=== PATIENT | female | born 1985 ===

== ENCOUNTER 2017-02-12 14:41 | Inpatient (IN) ==
[2017-02-12 15:33] LABS: Basophils % 0.4 % (0.0-0.8); Eosinophils # 0.1 10*3/uL (0.0-0.87); Eosinophils % 0.8 % (0.00-10.9); Hemoglobin 11.6 GM/DL (12.0-16.0); Immature Granulocytes % 0.4 %; Immature Granulocytes Absolute 0.04 #; Lymphocytes # 2.9 10*3/uL (1.4-4.0); Lymphocytes % 25.4 % (21.3-54.2); Mean Corpuscular HGB Conc 34.1 GM/DL (32-36); Mean Corpuscular Hemoglobin 29 PG (27-34); Mean Corpuscular Volume 83.5 FL (87-102); Mean Platelet Volume 10.3 FL (9.6-12.0); Monocytes # 0.6 10*3/uL (0.11-0.8); Monocytes % 5.3 % (1.7-12.7); Neutrophils # 7.7 10*3/uL (1.4-7.4); Neutrophils % 67.7 % (38.7-73.9); Platelet Count 276 T/CUMM (130-400); Red Blood Count 4.07 MC/CUMM (3.8-5.5); Red Cell Distribution Width 12.8 % (9.3-17.3); White Blood Count 11.3 T/CUMM (4-12)
[2017-02-12 15:39] LABS: Apearance,Urine Slightly Hazy (Clear); Bacteria,Urine Occasional /HPF (Few); Bilirubin,Urine Negative (Negative); Blood, Urine Negative (Negative); Glucose,Urine (UA) 150 mg/dL (Negative); Ketones,Urine Negative (Negative); Nitrite,Urine Negative (Negative); Protein,Urine Negative; RBC,Urine 1 /HPF (0-4); Squamous Epithelial Cell,Urine Occasional /HPF (0-10); Urine Color Straw (Yellow); Urine Specific Gravity 1.005 (1.001-1.035); Urine Urobilinogen < 2.0 EU/DL (0.2-1.0); WBC,Urine 2 /HPF (0-6)
[2017-02-12] MEDS: LACTATED RINGERS 1,000 ML IV SCH ×2 (15:52→21:07)
[2017-02-12 16:03] LABS: Alanine Aminotransferase 12 U/L (13-56); Albumin 2.3 G/DL (3.4-5.0); Alkaline Phosphatase 69 U/L (45-117); Aspartate Amino Transferase 12 U/L (0-37); Bilirubin,Total < 0.39 MG/DL (0.2-1.0); Blood Urea Nitrogen 9 MG/DL (7-18); Calcium 8.2 MG/DL (8.5-10.1); Glucose 146 MG/DL (74-106); Osmolality,Calculated 280.4 MOS/KG (273-304); Potassium 3.8 MMOL/L (3.5-5.1); Sodium 140 MMOL/L (136-145); Total Protein 5.8 G/DL (6.4-8.3); Uric Acid 4.8 MG/DL (2.6-6.0)
[2017-02-12] MEDS: hydrALAZINE 20 MG/1 ML VIAL IV PRN ×2 (16:44→16:55)
[2017-02-12] MEDS ORDERED: GLUCAGON 1 MG VIAL IM PRN (17:26)
[2017-02-12] MEDS ORDERED: DEXTROSE 50% 25 GM/50 ML VIAL IV PRN (17:26)
[2017-02-12] MEDS: ACETAMINOPHEN 500 MG TABLET PO PRN (18:45)
[2017-02-12] MEDS ORDERED: LABETALOL 100 MG TABLET PO ONE (19:00)
[2017-02-12] MEDS ORDERED: MEPERIDINE 50 MG/1 ML VIAL IV ONE (20:50)
[2017-02-12] MEDS ORDERED: ONDANSETRON 4 MG/2 ML VIAL IV ONE (20:50)
[2017-02-12] MEDS ORDERED: LABETALOL 200 MG TABLET ONE (20:57)
[2017-02-12] MEDS ORDERED: LABETALOL 100 MG TABLET PO SCH ×2 (21:00→21:12)
[2017-02-12] MEDS: LABETALOL 100 MG TABLET PO SCH (21:01)
[2017-02-13] MEDS: LACTATED RINGERS 1,000 ML IV SCH ×3 (08:23→19:17)
[2017-02-13] MEDS: LABETALOL 100 MG TABLET PO SCH ×2 (08:47→21:05)
[2017-02-13] MEDS ORDERED: LABETALOL 100 MG TABLET PO SCH (09:00)
--- NOTE | 2017-02-13 09:30 | Ultrasound Report ---
US OB biophys profile Indication: Hypertension, diabetes. Comparison: None. Technique: Multiple longitudinal and transverse sonographic images of the maternal abdomen/pelvis were obtained for evaluation of biophysical profile . Findings: Biophysical variables and scores: breathing movements: 2 out of 2 Gross body movements: 2 out of 2 tone: 2 out of 2 Qualitative amniotic fluid volume: 2 out of 2 Total score: 8 out of 8 position Vertex. Placenta location anterior. heart rate 131 bpm. JW 12.5 cm. Cervical length 4.9 cm. IMPRESSION: 8 out of 8 total biophysical profile score. PROCEDURE INTERPRETED AT [facility] DEPARTMENT OF RADIOLOGY Final Report Signed by: Dr Pablito Corrales
[2017-02-13] MEDS ORDERED: ACETAMINOPHEN/CODEINE 300-30 MG TABLET PO ONE (09:50)
[2017-02-13] MEDS: ACETAMINOPHEN 500 MG TABLET PO PRN (16:55)
--- NOTE | 2017-02-13 17:54 | OB/GYN History & Physical ---
History of Present Illness Chief complaint: Elevation of her blood pressure. History of present illness: Ms. Orantes is a 31 year old female 1 para 0 who presents with elevation of her blood pressure. The patient was sent over to labor and delivery for further evaluation. Blood pressures have been volatile depending upon the size of the cough 130s over 80s- 180s over 90s. She did receive IV Apresoline, she did also receive a labetalol 200 twice daily, and she has had a 24-hour urine collection initiated. Patient states that the fetus is very active, no right upper quadrant pain, occasional headaches. Will observe her very closely and will then assess her further. 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 Vitals: Vital Signs Temp Pulse Resp BP 02/13/17 12:00 97.7 F 61 19 138/84 02/13/17 08:00 98.4 F 68 20 146/82 02/13/17 04:00 97.8 F 77 18 112/59 02/13/17 00:00 97.6 F 62 20 110/53 02/12/17 20:00 97.7 F 96 H 20 138/69 General appearance: mild distress - Antepartum / Post Antepartum Exam Cervix - Dilatation: Thick and closed - Head Head exam: Present: normal inspection - Eye Eye exam: Present: EOMI Pupils: Present: REYMUNDO - ENT ENT exam: Present: normal exam - Neck Neck exam: Present: normal inspection - Respiratory Respiratory exam: Present: clear to auscultation bilaterally - Breast Breasts: as per HPI Menstruation: as per HPI - Cardiovascular Cardiovascular exam: Present: regular rate and rhythm - GI/Abdominal GI/Abdominal exam: Present: normal bowel sounds - Extremities Exam Extremities exam: Present: normal inspection - Back Exam Back exam: Present: normal inspection - Neurological Exam Neurological exam: Present: alert, oriented X3 - Psychiatric Psychiatric exam: Present: normal affect - Skin Skin exam: Present: normal color (2+ edema) Assessment and Plan (1) PIH ( induced hypertension) Status: Acute Assessment and plan: Prematurity, -induced hypertension, will assess the PIH labs, 24-hour urine protein. We will also administer Celestone. Patient will continue with some the labetalol 200 twice daily and will assess whether or not this patient will be delivered based upon her remaining blood pressures. Current Visit: Yes Results - Labs CBC & BMP: 02/12/17 15:26 02/12/17 15:26
[2017-02-13] MEDS ORDERED: BETAMETH SODIUM PHOS/ACETATE 30 MG/5 ML VIAL IM ONE (17:55)
[2017-02-13 18:49] LABS: Collection Time,Urine 24 HOURS; Total Protein 24 Hr Ur Result 333 MG/24HR (0-149.1); Total Volume,Urine 1450 ML (400-2000)
[2017-02-13 20:11] LABS: Creatinine 24 Hr Urine Result 1.58 G/24HR (0.60-1.80); Creatinine Clearance Urine 117.18 ML/MIN (70-115)
[2017-02-13] MEDS ORDERED: MEPERIDINE 50 MG/1 ML VIAL IM ONE (21:41)
[2017-02-13] MEDS ORDERED: PROMETHAZINE 25 MG/1 ML VIAL IM ONE (21:41)
[2017-02-14] MEDS ORDERED: BETAMETH SODIUM PHOS/ACETATE 30 MG/5 ML VIAL IM ONE (07:00)
[2017-02-14] MEDS: LABETALOL 100 MG TABLET PO SCH (10:12)
[2017-02-14 15:46] VITALS: BP 171/88
== END 2017-02-14 13:30 | disposition home or self-care (01) | DRG 781 ==
LOC: N.LD 14:41 → N.LDOUT 14:41 → N.LD 14:48
PROVIDERS: ADMIT Obstetrics & Gynecology; ATTEND Obstetrics & Gynecology

== ENCOUNTER 2017-03-02 17:15 | Inpatient (IN) ==
[2017-03-02 18:16] LABS: INR 0.9; PT Patient Result 9.7 SECS; Partial Thromboplastin Time 28.9 SECS (0-40)
[2017-03-02] MEDS ORDERED: ONDANSETRON 4 MG/2 ML VIAL IV PRN (18:24)
[2017-03-02] MEDS ORDERED: MEPERIDINE 50 MG/1 ML VIAL IV PRN (18:24)
[2017-03-02] MEDS ORDERED: hydrALAZINE 20 MG/1 ML VIAL IV ONE (18:28)
[2017-03-02] MEDS ORDERED: MAGNESIUM SULF RIDER 100 ML IV ONE (18:28)
[2017-03-02] MEDS ORDERED: LACTATED RINGERS 1,000 ML IV SCH (18:30)
[2017-03-02 18:54] LABS: Alanine Aminotransferase 17 U/L (13-56); Albumin 2.5 G/DL (3.4-5.0); Alkaline Phosphatase 79 U/L (45-117); Aspartate Amino Transferase 16 U/L (0-37); Bilirubin,Total < 0.39 MG/DL (0.2-1.0); Blood Urea Nitrogen 13 MG/DL (7-18); Calcium 8.3 MG/DL (8.5-10.1); Glucose 90 MG/DL (74-106); Osmolality,Calculated 282.1 MOS/KG (273-304); Potassium 3.8 MMOL/L (3.5-5.1); Sodium 142 MMOL/L (136-145); Uric Acid 6.2 MG/DL (2.6-6.0)
[2017-03-02] MEDS: MAGNESIUM SULF DRIP 40 GM/1,000 ML ML IV SCH (19:23)
--- NOTE | 2017-03-02 19:35 | OB/GYN History & Physical ---
History of Present Illness Chief complaint: Elevated BP History of present illness: Ms. Orantes is a 31 year old female at 36 0/7 weeks who presented to the [facility] this evening because of lower abdominal pain. Her BF began to fall last night and she caught him. It was noted while she was there that her BP was elevated at 170/100. Pt reported that Dr. Shaw started her on BP medication (Labetalol 200 bid) 2 weeks ago. Received 10mg of Labetalol there. Upon arrival here. BP still elevated and patient now has a MEIER. Advised her that the best course of action is to proceed with IOL. Will attempt cytotec. If unsucessful, will proceed to section. H/o Type 2 DM. Was on Metformin. Stopped early in . 2 weeks ago when her BP became elevated, her sugars were again elevated and she was started on insulin. Morbidly obese. No other medical history or surgical history. Home Medications Medication Instructions Recorded Confirmed Type Folic Acid 0.8 mg PO DAILY 02/12/17 03/02/17 History Vit No.130/Iron/Folic 1 each PO DAILY 02/12/17 03/02/17 History [ Vitamins] Insulin NPH Human Isophane 16 units SUBCUT BID W/MEALS 02/21/17 03/02/17 History [Novolin N] Labetalol Tab [Trandate Tab] 1 tablet PO BID 02/21/17 03/02/17 History Insulin Regular, Human [NovoLIN R] 5 units SUBCUT BID W/MEALS 02/27/17 03/02/17 History Allergies Allergy/AdvReac Type Severity Reaction Status Date / Time No Known Allergies Allergy Verified 03/02/17 17:37 Medical,Surgical,& Family Hx - Social History 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 No contractions) Assessment and Plan (1) 36 weeks gestation of Status: Acute Current Visit: Yes (2) Class 1 obesity due to excess calories in adult Status: Acute Current Visit: Yes (3) PIH ( induced hypertension) Status: Acute Assessment and plan: Plan IOL with cytotec Procardia and Magnesium started. Anticipate delivery Current Visit: No Results - Labs CBC & BMP: 03/02/17 17:59
[2017-03-02] MEDS ORDERED: GLUCAGON 1 MG VIAL IM PRN (19:38)
[2017-03-02] MEDS ORDERED: DEXTROSE 50% 25 GM/50 ML VIAL IV PRN (19:38)
[2017-03-02] MEDS ORDERED: ACETAMINOPHEN 500 MG TABLET PO PRN (21:54)
[2017-03-02 22:03] LABS: Apearance,Urine CLEAR (Clear); Bacteria,Urine Occasional /HPF (Few); Bilirubin,Urine Negative (Negative); Blood, Urine Negative (Negative); Glucose,Urine (UA) Negative (Negative); Ketones,Urine Negative (Negative); Mucus,Urine Occasional /LPF (Occasional); Nitrite,Urine Negative (Negative); Protein,Urine 100 MG/DL; RBC,Urine <1 /HPF (0-4); Squamous Epithelial Cell,Urine Occasional /HPF (0-10); Transitional Epi Cells,Urine Occasional /HPF (<1); Urine Color Yellow (Yellow); Urine Specific Gravity 1.019 (1.001-1.035); Urine Urobilinogen < 2.0 EU/DL (0.2-1.0); WBC,Urine 1 /HPF (0-6)
[2017-03-02] MEDS ORDERED: hydrALAZINE 20 MG/1 ML VIAL IV PRN (23:36)
[2017-03-02] MEDS ORDERED: CITRIC ACID/SODIUM CITRATE 30 ML UDCUP PO ONE (23:54)
[2017-03-02] MEDS ORDERED: FAMOTIDINE 20 MG/2 ML VIAL IV ONE (23:54)
[2017-03-02] MEDS ORDERED: cefOXitin 3,000 MG in SODIUM CHLORIDE 0.9% 100 ML IV ONE (23:58)
[2017-03-03] MEDS ORDERED: AMPICILLIN INJ 2,000 MG in SODIUM CHLORIDE 0.9% 100 ML IV ONE
[2017-03-03] MEDS ORDERED: OXYTOCIN/LR 20 UNIT/1,000 ML BAG IV ONE ×2 (00:08→01:56)
--- NOTE | 2017-03-03 00:24 | OB/GYN Progress Note ---
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 BP remain elevated. 2nd dose of cytotec placed without significant cervical change. Still has MEIER in spite of iv Demerol and po tylenol. Explained to the patient that in light of the findings, C section would be best given her remoteness from delivery. R/B/A to section reviewed with the patient. Pt verbalized understanding of said information and is willing to proceed. 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 Contractions q 3-5 minutes) Results - Labs CBC & BMP: 03/02/17 17:59
[2017-03-03] MEDS ORDERED: PHENYLEPHRINE 1 MG/10 ML SYRINGE IV ONE (00:34)
[2017-03-03] MEDS ORDERED: ONDANSETRON 4 MG/2 ML VIAL ONE (00:34)
[2017-03-03 00:39] LABS: Barbiturates Screen,Urine Negative (Negative); Benzodiazepines Screen,Urine Negative (Negative); Cannabinoid Screen,Urine Negative (Negative); Opiate Screen,Urine Positive (Negative); Phencyclidine Screen,Urine Negative (Negative)
[2017-03-03 01:30] LABS: Cord Arterial Blood HCO3 18.3 MMOL/L
[2017-03-03 01:31] LABS: Cord Venous Blood HCO3 24.3 MMOL/L; Cord Venous Blood PCO2 53.6 MMHG; Cord Venous Blood PO2 15.7 MMHG
[2017-03-03] MEDS ORDERED: ONDANSETRON 4 MG/2 ML VIAL IV PRN (01:56)
[2017-03-03] MEDS ORDERED: RHO(D) IMMUNE GLOBULIN 300 MCG SYRINGE IM ONE (01:56)
--- NOTE | 2017-03-03 02:08 | Anesthesia Post-Op ---
Anesthesia Post OP - Post Ansesthetic Evaluation Patient seen in post op: Yes Resp: within normal limits CV: within normal limits Mental: within normal limits Temp: within normal limits [id number]: within normal limits Nausea and Vomiting: within normal limits Pain: within normal limits
[2017-03-03] MEDS ORDERED: MORPHINE 10 MG/10 ML VIAL ONE (02:10)
[2017-03-03] MEDS ORDERED: fentaNYL 100 MCG/2 ML VIAL ONE (02:11)
[2017-03-03] MEDS ORDERED: ePHEDrine 50 MG/ML AMP ONE (02:11)
--- NOTE | 2017-03-03 02:13 | Operative Note ---
Date of procedure: 03/03/17 Pre-op diagnosis: 1. PIH 2. 36 weeks 3. Obesity Post-op diagnosis: same Procedure: PRIMARY Pt was taken to the OR and transferred to the OR table. Regional anesthesia was placed and found to be adequate. Prepped and draped in sterile fashion with vera in her bladder. Pt noted to have what appears to be yeast rash across her entire lower abdomen beneath paniculus meeting top of mons. Width 3 cm. Not red. Incision thru superior portion. Incision made 2 FBs above symphysis pubis. Carried down to the underlying fascia. Fascia scored in the midline and the incision extended to either side with Kapoor scissors. Aman clamps placed superiorly and rectus muscle dissected away. Similar procedure inferiorly. Midline entered sharply with Metzenbaum scissors. Incision extended bluntly. Renato retractor placed. Incision made above bladder reflection. Technically difficult secondary to her paniculus. Incsion extended bluntly and sharply. Clear fluid. Attempted to deliver vertex. Incision extended on the uterus and Kiwi placed. Popped off. Renato removed for space and rectus muscle on the left cut. delivered. Cord clamped and cut, infant handed off to the awaiting NICU team. Cord bloods and gases obtained. Male infant. 7lbs 4 oz. APGARS 3/9. Normal uterus tubes and ovaries. Placenta delivered. Uterus cleared of clots and debris. Uterus closed in 2 layers with vicryl suture. Pelvis copiously irrigated with warm saline. Fascia closed with two vicryl sutures from either side to midline. Skin closed with marlyn. Sponge, lap and needle counts correct x 2. Pt taken to recovery in stable condition. Anesthesia: regional Surgeon / Physician: Darling Hurst Psychiatric Assistant: Jovanna Selby Estimated blood loss: other (1000 cc) Specimens: other (Placenta) Condition: stable Disposition: other (L&D) Results - Labs CBC & BMP: 03/02/17 17:59 Discharge Plan - Discharge Medications No Action Insulin Regular, Human [NovoLIN R] 5 units SUBCUT BID W/MEALS Vit No.130/Iron/Folic [ Vitamins] 1 each PO DAILY Folic Acid 0.8 mg PO DAILY Labetalol Tab [Trandate Tab] 1 tablet PO BID Insulin NPH Human Isophane [Novolin N] 16 units SUBCUT BID W/MEALS - Follow Up or Referral - Forms/Instructions
[2017-03-03] MEDS: IBUPROFEN 800 MG TABLET PO PRN ×2 (03:09→15:26)
[2017-03-03] MEDS ORDERED: AMPICILLIN INJ 1,000 MG in SODIUM CHLORIDE 0.9% 100 ML IV SCH (04:00)
[2017-03-03] MEDS ORDERED: hydrALAZINE 20 MG/1 ML VIAL IV ONE (06:36)
[2017-03-03] MEDS: LACTATED RINGERS 1,000 ML IV SCH ×2 (07:30→23:41)
[2017-03-03 07:51] LABS: Basophils % 0.1 % (0.0-0.8); Eosinophils % 0.1 % (0.00-10.9); Hematocrit 29.5 VOL% (35.7-47.0); Hemoglobin 9.9 GM/DL (12.0-16.0); Immature Granulocytes % 0.5 %; Immature Granulocytes Absolute 0.08 #; Lymphocytes # 2.1 10*3/uL (1.4-4.0); Lymphocytes % 14.2 % (21.3-54.2); Mean Corpuscular HGB Conc 33.6 GM/DL (32-36); Mean Corpuscular Hemoglobin 29 PG (27-34); Mean Platelet Volume 10.4 FL (9.6-12.0); Monocytes # 0.7 10*3/uL (0.11-0.8); Monocytes % 4.6 % (1.7-12.7); Neutrophils % 80.5 % (38.7-73.9); Platelet Count 230 T/CUMM (130-400); Red Blood Count 3.47 MC/CUMM (3.8-5.5); Red Cell Distribution Width 14.2 % (9.3-17.3); White Blood Count 14.9 T/CUMM (4-12)
[2017-03-03] MEDS ORDERED: FLUCONAZOLE 100 MG TABLET PO ONE (08:00)
[2017-03-03] MEDS: DOCUSATE SODIUM 100 MG CAPSULE PO SCH ×2 (10:12→20:44)
[2017-03-03] MEDS: MULTIVITAMIN (PRENATAL) TABLET PO SCH (10:15)
[2017-03-03] MEDS ORDERED: DEXTROSE 50% 25 GM/50 ML VIAL IV PRN (11:53)
[2017-03-03] MEDS ORDERED: GLUCAGON 1 MG VIAL IM PRN (11:53)
[2017-03-03] MEDS: MAGNESIUM SULF DRIP 40 GM/1,000 ML ML IV SCH (17:10)
[2017-03-03] MEDS: SIMETHICONE CHEW 80 MG TABLET PO PRN (18:15)
[2017-03-03] MEDS: metFORMIN 500 MG TABLET PO SCH (19:20)
[2017-03-03] MEDS: INSULIN REGULAR 100 UNIT/ML SUBCUT SCH (21:06)
[2017-03-04 05:02] LABS: Basophils % 0.2 % (0.0-0.8); Eosinophils # 0.1 10*3/uL (0.0-0.87); Eosinophils % 0.7 % (0.00-10.9); Hematocrit 26.4 VOL% (35.7-47.0); Hemoglobin 8.9 GM/DL (12.0-16.0); Immature Granulocytes % 0.5 %; Immature Granulocytes Absolute 0.06 #; Lymphocytes # 2.7 10*3/uL (1.4-4.0); Lymphocytes % 21.1 % (21.3-54.2); Mean Corpuscular HGB Conc 33.7 GM/DL (32-36); Mean Corpuscular Hemoglobin 29 PG (27-34); Mean Corpuscular Volume 85.7 FL (87-102); Monocytes # 0.6 10*3/uL (0.11-0.8); Monocytes % 4.9 % (1.7-12.7); Neutrophils # 9.2 10*3/uL (1.4-7.4); Neutrophils % 72.6 % (38.7-73.9); Platelet Count 240 T/CUMM (130-400); Red Blood Count 3.08 MC/CUMM (3.8-5.5); Red Cell Distribution Width 14.7 % (9.3-17.3); White Blood Count 12.7 T/CUMM (4-12)
[2017-03-04] MEDS: IBUPROFEN 800 MG TABLET PO PRN ×3 (05:07→22:20)
--- NOTE | 2017-03-04 07:33 | OB/GYN Progress Note ---
Assessment and Plan (1) 36 weeks gestation of Status: Acute Current Visit: Yes (2) Class 1 obesity due to excess calories in adult Status: Acute Current Visit: Yes (3) PIH ( induced hypertension) Status: Acute Assessment and plan: S/p IV Apresoline x 2, Procardia po x1 S/p Iv Demerol and Po tylenol REmote from delivery with continued BP elevation and persistant MEIER Proceed with primary C Section Current Visit: No (4) S/P primary low transverse Status: Acute Assessment and plan: POD#1 s/p primary section for PIH BP ok this morning. Increase procardia to 90 BS ok, Metformin restarted. 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 No complaints Exam INDEPENDENT CONTRACTOR - Constitutional Vitals: Vital Signs Temp Pulse Resp BP 03/04/17 04:00 97.5 F L 77 20 173/86 03/04/17 01:50 18 03/04/17 00:00 163/87 03/03/17 20:00 97.6 F 79 18 163/91 03/03/17 16:00 97.1 F L 79 19 164/95 03/03/17 12:00 97.2 F L 76 17 153/90 General appearance: no acute distress, morbidly obese - Head Head exam: Present: normocephalic - Eye Eye exam: Present: EOMI Pupils: Present: REYMUNDO - GI/Abdominal GI/Abdominal exam: Present: soft, other (Incision intact) Results - Labs CBC & BMP: 03/04/17 04:58 03/02/17 17:59
[2017-03-04] MEDS: INSULIN REGULAR 100 UNIT/ML SUBCUT SCH ×7 (08:24→21:41)
[2017-03-04] MEDS: metFORMIN 500 MG TABLET PO SCH ×2 (08:25→16:46)
[2017-03-04] MEDS: LACTATED RINGERS 1,000 ML IV SCH (08:27)
[2017-03-04] MEDS: MULTIVITAMIN (PRENATAL) TABLET PO SCH (08:59)
[2017-03-04] MEDS: DOCUSATE SODIUM 100 MG CAPSULE PO SCH ×2 (08:59→21:41)
[2017-03-04] MEDS: MAGNESIUM HYDROXIDE SUSP 30 ML UDCUP PO PRN ×2 (08:59→21:41)
[2017-03-04] MEDS ORDERED: ACETAMINOPHEN 500 MG TABLET ONE (16:51)
[2017-03-04] MEDS ORDERED: ACETAMINOPHEN 500 MG TABLET PO PRN (17:19)
[2017-03-04] MEDS: SIMETHICONE CHEW 80 MG TABLET PO PRN (21:41)
[2017-03-04] MEDS ORDERED: BISACODYL 10 MG SUPP RECTAL PRN (22:09)
[2017-03-05] MEDS: INSULIN REGULAR 100 UNIT/ML SUBCUT SCH ×4 (07:43→20:52)
[2017-03-05] MEDS: metFORMIN 500 MG TABLET PO SCH ×2 (09:07→18:27)
[2017-03-05] MEDS: DOCUSATE SODIUM 100 MG CAPSULE PO SCH ×2 (09:07→20:51)
[2017-03-05] MEDS: FERROUS SULFATE 325 MG TABLET PO SCH ×2 (09:07→20:51)
[2017-03-05] MEDS: MULTIVITAMIN (PRENATAL) TABLET PO SCH (09:07)
--- NOTE | 2017-03-05 10:24 | OB/GYN Progress Note ---
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 Bonding well with infant. Exam [facility] - Constitutional Vitals: Vital Signs Temp Pulse Resp BP Pulse Ox 03/05/17 07:26 97.6 F 77 18 139/71 96 03/05/17 06:05 20 03/05/17 04:10 97.6 F 87 20 129/72 96 03/05/17 02:05 98.1 F 79 18 145/73 96 03/05/17 00:15 98.8 F 95 H 20 141/74 98 03/04/17 22:20 99.7 F H 95 H 20 140/72 96 03/04/17 20:45 90 20 127/71 96 03/04/17 19:45 98.4 F 86 20 140/72 96 03/04/17 19:25 98.4 F 97 H 18 136/84 97 03/04/17 18:00 18 03/04/17 16:00 99.6 F 95 H 20 136/71 99 03/04/17 15:50 20 03/04/17 14:00 98.7 F 91 H 20 127/71 96 03/04/17 12:15 98.6 F 101 H 20 126/74 97 General appearance: no acute distress - Antepartum / Post Post Exam Breast: bilateral: normal Abdomen obstetrics: Present: bowel sounds normal Vagina: Present: normal moisture, discharge (Light lochia rubra) Uterus exam: Present: enlarged Adnexa: bilateral: normal Anus/Rectum: Present: normal perianal skin - Gyencological / Post Surgical Post Surgical Exam Lungs: bilateral: normal Chest: Normal S1, Normal S2 Extremities [facility]: Present: normal Abdomen obstetrics progress note: Present: normal appearance Incision OB: Present: normal, intact - Head Head exam: Present: normal inspection - Respiratory Respiratory exam: Present: clear to auscultation bilaterally - Cardiovascular Cardiovascular exam: Present: regular rate and rhythm - GI/Abdominal GI/Abdominal exam: Present: normal bowel sounds, soft - Extremities Exam Extremities exam: Present: normal inspection - Back Exam Back exam: Present: normal inspection - Neurological Exam Neurological exam: Present: alert, oriented X3 - Psychiatric Psychiatric exam: Present: normal affect, normal mood - Skin Skin exam: Present: normal color, warm Results - Labs CBC & BMP: 03/04/17 04:58 03/02/17 17:59
[2017-03-05] MEDS: IBUPROFEN 800 MG TABLET PO PRN (15:15)
[2017-03-06] MEDS: INSULIN REGULAR 100 UNIT/ML SUBCUT SCH (07:20)
[2017-03-06] MEDS: IBUPROFEN 800 MG TABLET PO PRN (07:25)
[2017-03-06 07:30] VITALS: BP 136/72
[2017-03-06] MEDS: metFORMIN 500 MG TABLET PO SCH (09:18)
[2017-03-06] MEDS: FERROUS SULFATE 325 MG TABLET PO SCH (09:19)
[2017-03-06] MEDS: MULTIVITAMIN (PRENATAL) TABLET PO SCH (09:19)
[2017-03-06] MEDS: DOCUSATE SODIUM 100 MG CAPSULE PO SCH (09:19)
--- NOTE | 2017-03-06 09:46 | Discharge Summary ---
Hospital Course - Hospital Course Hospital Course: The patient presented to the labor department and subsequently delivered an infant via due to PIH. The patient has followed a normal postoperative course and she is doing well. She is voiding without difficulty. Her bowel sounds are positive and she has had a normal bowel movement. Her incision is well approximated without signs of infection. Her fundus is firm and midline. Her vital signs and lab values are stable. She is bonding well with her infant. She is ambulating without difficulty. She denies any pain or swelling in her legs or calves. She will be discharged home prescriptions for pain and follow-up appointment in our office. Diagnosis - Discharge Diagnosis (1) S/P primary low transverse Status: Acute Specialty Discharge - Follow Up or Referrals Follow up with: Kumar Shaw MD [Physician] - 2 Weeks ([place] out on SundayMarch 14.) Discharge Plan - Discharge Data Disposition: Disch To Home/Self Care Condition at Discharge: Stable Discharge Diet: advance to your usual diet, regular diet Activity: increase activity as tolerated, no lifting, no prolonged standing Hygiene: may shower Driving: not until seen by doctor Contact your physician if you experience:: fever over 101, pain uncontrolled by pain medications - Discharge Medications New Ferrous Sulfate Tab [Feosol Original Tab] 325 mg PO BID #60 tablet HYDROcodone/ACETAMIN 5-325 [Newell 5-325] 2 tablet PO Q4H PRN #30 tablet PRN Reason: Pain Moderate (4-7) Ibuprofen Tab [Motrin Tab] 800 mg PO Q8H PRN #30 tablet PRN Reason: Pain Severe (8-10) NIFEdipine XL TAB [Procardia Xl] 90 mg PO DAILY #30 tablet No Action Insulin Regular, Human [NovoLIN R] 5 units SUBCUT BID W/MEALS Vit No.130/Iron/Folic [ Vitamins] 1 each PO DAILY Folic Acid 0.8 mg PO DAILY Labetalol Tab [Trandate Tab] 1 tablet PO BID Insulin NPH Human Isophane [Novolin N] 16 units SUBCUT BID W/MEALS - Follow Up or Referral - Forms/Instructions Instructions: Section (DC), Perineal Care (DC), Bleeding (DC) Exam - Constitutional Vitals: Period Temp Pulse Resp BP Sys/Smith Pulse Ox Last 24 Hr 97 F-99.7 F 74-100 18-20 135-158/72-92 97-100 General appearance: no acute distress - Head Head exam: Present: normal inspection - Respiratory Respiratory exam: Present: clear to auscultation bilaterally - Cardiovascular Cardiovascular exam: Present: regular rate and rhythm - GI/Abdominal GI/Abdominal exam: Present: normal bowel sounds, soft - Extremities Exam Extremities exam: Present: normal inspection - Neurological Exam Neurological exam: Present: alert, oriented X3 - Psychiatric Psychiatric exam: Present: normal affect, normal mood - Skin Skin exam: Present: normal color, warm Discharge Results Labs on day of discharge: Labs from last 24 hours 03/06/17 03/05/17 03/05/17 07:18 20:51 16:42 POC Glucose 148 H 209 H 182 H 03/05/17 11:22 POC Glucose 200 H DS: Provider Date of admission: 03/03/17 00:04 Primary care physician: Russel Bolden MD Attending physician on admission: Darling Hurst MD Consults: 03/03/17 01:56 Consult to Shark Biologist [CONS] Routine Consult Shark Biologist: Breast Feeding Discharging clinician: Sofía Martinez CNM Expected date of discharge: 03/06/17
[2017-03-06] MEDS ORDERED: MEASLES/MUMPS/RUBELLA VACCINE 0.5 ML VIAL SUBCUT ONE (10:08)
[2017-03-06] MEDS ORDERED: DIPH/TET/ACEL PERT BOOSTER VACCINE 0.5 ML VIAL IM ONE (10:27)
--- NOTE | 2017-03-06 12:20 | Pathology Report from [facility] ---
[facility] ACCESSION # : [id number] PATIENT NAME : Viviana Orantes ORDERING DR : Darling Hurst MD CLINICAL HX: IUP @ 36 wks, PIH, IDDM POST-OP DX: Same SPECIMEN INFO: Placenta GROSS DESCRIPTION: The specimen is received fresh labeled VIVIANA ORANTES consists of a 475.0 gm placenta measuring 19.4 x 19.0 x 2.1 cm. The membranes are pink-camacho and translucent. The umbilical cord is eccentrically inserted measuring 29.7 cm and contains three vessels. The surface is blue pink-dalton. The maternal surface is deep beefy red with moderately disrupted cotyledons and scattered areas of fibrin present. No gross abnormalities upon sectioning. Lever Operator sections submitted in cassettes ( A) membranes and cord and (B) and maternal surface. DIAGNOSIS FOR VIVIANA ORANTES: PLACENTA, MEMBRANES, UMBILICAL CORD: Focal placental infarction with dystrophic calcification, mild intravillous blood. Tri -vessel umbilical cord, eccentrically inserted. Membranes with chronic inflammation and attached blood. COLLECTED DATE: 03/05/2017 [facility] REPORT DATE: 03/06/2017 ELECTRONICALLY SIGNED BY: Jan Foss M.D. 03/06/2017 - 9:51:35 [facility]ENTERMery
== END 2017-03-06 12:00 | disposition home or self-care (01) | DRG 765 ==
LOC: N.LDOUT 17:15 → N.LD 17:17 → N.OB 03-04 12:21
PROVIDERS: ADMIT Obstetrics & Gynecology; ATTEND Obstetrics & Gynecology
PROC: LDCSECT (ICD-10-PCS; 2017-03-03)

== ENCOUNTER 2019-04-21 15:07 | Inpatient (IN) ==
[2019-04-21] MEDS ORDERED: CITRIC ACID/SODIUM CITRATE 30 ML UDCUP PO ONE (15:46)
[2019-04-21] MEDS ORDERED: OXYTOCIN/LR 20 UNIT/1,000 ML BAG IV ONE ×2 (15:49→18:43)
[2019-04-21] MEDS ORDERED: OXYTOCIN 10 UNIT/ML VIAL IM ONE ×2 (15:49→15:57)
[2019-04-21] MEDS ORDERED: FAMOTIDINE 20 MG/2 ML VIAL IV ONE (15:49)
[2019-04-21] MEDS ORDERED: ceFAZolin 3,000 MG in SYRINGE 1 EACH IV ONE (15:52)
[2019-04-21] MEDS ORDERED: LACTATED RINGERS 1,000 ML IV SCH ×2 (16:00→19:00)
[2019-04-21] MEDS ORDERED: hydrALAZINE 20 MG/1 ML VIAL IV ONE ×2 (16:12→16:37)
[2019-04-21] MEDS ORDERED: hydrALAZINE 20 MG/1 ML VIAL ONE (16:14)
[2019-04-21 16:15] LABS: Basophils % 0.3 % (0.0-0.8); Eosinophils # 0.1 10*3/uL (0.0-0.87); Eosinophils % 1.1 % (0.00-10.9); Hematocrit 32.2 VOL% (35.7-47.0); Hemoglobin 9.5 GM/DL (12.0-16.0); Immature Granulocytes % 0.5 %; Immature Granulocytes Absolute 0.05 #; Lymphocytes # 2.9 10*3/uL (1.4-4.0); Lymphocytes % 28.9 % (21.3-54.2); Mean Corpuscular HGB Conc 29.5 GM/DL (32-36); Mean Corpuscular Volume 75.6 FL (87-102); Mean Platelet Volume 9.5 FL (9.6-12.0); Monocytes % 4.7 % (1.7-12.7); Neutrophils % 64.5 % (38.7-73.9); Platelet Count 336 T/CUMM (130-400); Red Blood Count 4.26 MC/CUMM (3.8-5.5); Red Cell Distribution Width 14.5 % (9.3-17.3)
[2019-04-21 16:25] LABS: INR 0.9; PT Patient Result 9.5 SECS; Partial Thromboplastin Time 27.4 SECS (0-40)
[2019-04-21 16:32] LABS: Alanine Aminotransferase 16 U/L (13-56); Albumin 2.4 G/DL (3.4-5.0); Alkaline Phosphatase 133 U/L (45-117); Aspartate Amino Transferase 21 U/L (0-37); Bilirubin,Total < 0.39 MG/DL (0.2-1.0); Blood Urea Nitrogen 8 MG/DL (7-18); Calcium 8.4 MG/DL (8.5-10.1); Glucose 55 MG/DL (74-106); Osmolality,Calculated 276.3 MOS/KG (273-304); Total Protein 6.9 G/DL (6.4-8.3)
[2019-04-21] MEDS ORDERED: OXYTOCIN/LR 30 UNIT/1,000 ML BAG IV ONE (16:51)
[2019-04-21] MEDS ORDERED: DEXTROSE 10% 25 GM/250 ML BAG IV PRN (17:00)
[2019-04-21] MEDS ORDERED: GLUCAGON 1 MG VIAL IM PRN ×2 (17:00→18:43)
[2019-04-21] MEDS ORDERED: MAGNESIUM SULF DRIP 40 GM/1,000 ML ML IV SCH ×3 (18:30→20:00)
[2019-04-21] MEDS ORDERED: MAGNESIUM SULF RIDER 100 ML IV ONE (18:30)
[2019-04-21 18:32] LABS: Cord Venous Blood HCO3 22.7 MMOL/L; Cord Venous Blood PCO2 40.8 MMHG; Cord Venous Blood PO2 22.2
[2019-04-21] MEDS ORDERED: RHO(D) IMMUNE GLOBULIN 300 MCG SYRINGE IM ONE (18:43)
[2019-04-21] MEDS ORDERED: SIMETHICONE CHEW 80 MG TABLET PO PRN (18:43)
[2019-04-21] MEDS ORDERED: ONDANSETRON 4 MG/2 ML VIAL IV PRN (18:43)
[2019-04-21] MEDS ORDERED: ACETAMINOPHEN 325 MG TABLET PO PRN (18:43)
[2019-04-21] MEDS ORDERED: DEXTROSE 50% 25 GM/50 ML VIAL IV PRN (18:43)
[2019-04-21] MEDS ORDERED: fentaNYL 100 MCG/2 ML VIAL ONE (18:50)
[2019-04-21] MEDS ORDERED: MORPHINE 10 MG/10 ML VIAL ONE (18:50)
[2019-04-21] MEDS ORDERED: BUPIVACAINE SPINAL 0.75% 2 ML AMP SPINAL ONE (18:50)
[2019-04-21] MEDS ORDERED: KETOROLAC 30 MG/1 ML VIAL ONE (18:51)
[2019-04-21] MEDS ORDERED: PHENYLEPHRINE 1 MG/10 ML SYRINGE IV ONE (18:51)
[2019-04-21] MEDS ORDERED: GLYCOPYRROLATE 0.4 MG/2 ML VIAL ONE (18:51)
[2019-04-21] MEDS ORDERED: HYDROmorphone 2 MG/1 ML VIAL IV PRN (22:06)
[2019-04-21] MEDS ORDERED: hydrOXYzine HCL 25 MG/1 ML VIAL IM PRN (22:06)
[2019-04-21] MEDS ORDERED: diphenhydrAMINE 50 MG/1 ML VIAL IV PRN (22:06)
[2019-04-22] MEDS: ceFAZolin 1,000 MG in SYRINGE 1 EACH IV SCH ×2 (00:20→08:39)
[2019-04-22] MEDS ORDERED: diphenhydrAMINE 50 MG/1 ML VIAL IV ONE (00:20)
[2019-04-22 02:49] LABS: Basophils % 0.3 % (0.0-0.8); Eosinophils % 0.3 % (0.00-10.9); Hematocrit 31.5 VOL% (35.7-47.0); Hemoglobin 9.5 GM/DL (12.0-16.0); Immature Granulocytes % 0.4 %; Immature Granulocytes Absolute 0.06 #; Lymphocytes # 1.9 10*3/uL (1.4-4.0); Lymphocytes % 12.7 % (21.3-54.2); Mean Corpuscular HGB Conc 30.2 GM/DL (32-36); Mean Corpuscular Volume 74.5 FL (87-102); Mean Platelet Volume 9.8 FL (9.6-12.0); Monocytes % 3.7 % (1.7-12.7); Neutrophils % 82.6 % (38.7-73.9); Platelet Count 313 T/CUMM (130-400); Red Blood Count 4.23 MC/CUMM (3.8-5.5); Red Cell Distribution Width 14.6 % (9.3-17.3); White Blood Count 15.3 T/CUMM (4-12)
[2019-04-22] MEDS: IBUPROFEN 800 MG TABLET PO PRN ×2 (07:31→20:31)
[2019-04-22] MEDS ORDERED: DEXTROSE 10% 25 GM/250 ML BAG IV PRN (07:59)
[2019-04-22] MEDS ORDERED: GLUCAGON 1 MG VIAL IM PRN (07:59)
[2019-04-22] MEDS: DOCUSATE SODIUM 100 MG CAPSULE PO SCH ×2 (08:38→20:31)
[2019-04-22] MEDS: MULTIVITAMIN (PRENATAL) TABLET PO SCH (08:38)
[2019-04-22] MEDS: INSULIN REGULAR 100 UNIT/ML SUBCUT SCH ×4 (11:59→21:12)
[2019-04-22] MEDS: FERROUS SULFATE 325 MG TABLET PO SCH (12:01)
[2019-04-22] MEDS: MAGNESIUM HYDROXIDE SUSP 30 ML UDCUP PO PRN ×2 (12:28→20:30)
[2019-04-22] MEDS: METOCLOPRAMIDE 10 MG TABLET PO SCH ×2 (12:28→20:32)
[2019-04-23] MEDS: DOCUSATE SODIUM 100 MG CAPSULE PO SCH ×3 (01:52→20:43)
[2019-04-23] MEDS: METOCLOPRAMIDE 10 MG TABLET PO SCH ×3 (03:40→20:43)
[2019-04-23] MEDS ORDERED: MAGNESIUM CITRATE 300 ML BOTTLE PO ONE (07:22)
[2019-04-23] MEDS: INSULIN REGULAR 100 UNIT/ML SUBCUT SCH ×4 (08:04→20:49)
[2019-04-23] MEDS: FERROUS SULFATE 325 MG TABLET PO SCH (08:40)
[2019-04-23] MEDS: MULTIVITAMIN (PRENATAL) TABLET PO SCH (08:40)
[2019-04-23] MEDS: IBUPROFEN 800 MG TABLET PO PRN (16:35)
[2019-04-23] MEDS: MAGNESIUM HYDROXIDE SUSP 30 ML UDCUP PO PRN (20:43)
[2019-04-24 07:33] VITALS: BP 149/87
[2019-04-24] MEDS: DOCUSATE SODIUM 100 MG CAPSULE PO SCH (08:43)
[2019-04-24] MEDS: FERROUS SULFATE 325 MG TABLET PO SCH (08:44)
[2019-04-24] MEDS: INSULIN REGULAR 100 UNIT/ML SUBCUT SCH (08:44)
[2019-04-24] MEDS: MULTIVITAMIN (PRENATAL) TABLET PO SCH (08:44)
== END 2019-04-24 12:50 | disposition home or self-care (01) | DRG 788 ==
LOC: N.LDOUT 15:07 → N.LD 15:08 → N.OB 04-22 10:57
PROVIDERS: ADMIT Obstetrics & Gynecology; ATTEND Obstetrics & Gynecology
PROC: LDCSECT (ICD-10-PCS; 2019-04-21 16:50)

== ENCOUNTER 2020-12-07 13:00 | Inpatient (IN) ==
[2020-12-07 13:49] LABS: Basophils % 0.3 % (0.0-0.8); Eosinophils # 0.2 10*3/uL (0.0-0.87); Eosinophils % 1.4 % (0.00-10.9); Hematocrit 34.8 VOL% (35.7-47.0); Hemoglobin 11.6 GM/DL (12.0-16.0); Immature Granulocytes % 0.4 %; Immature Granulocytes Absolute 0.05 #; Lymphocytes # 2.9 10*3/uL (1.4-4.0); Lymphocytes % 25.4 % (21.3-54.2); Mean Corpuscular HGB Conc 33.3 GM/DL (32-36); Mean Corpuscular Volume 84.9 FL (87-102); Monocytes % 4.9 % (1.7-12.7); Neutrophils % 67.6 % (38.7-73.9); Platelet Count 324 T/CUMM (130-400); White Blood Count 11.4 T/CUMM (4-12)
[2020-12-07 14:09] LABS: Alanine Aminotransferase 21 U/L (13-56); Albumin 2.3 G/DL (3.4-5.0); Alkaline Phosphatase 129 U/L (45-117); Aspartate Amino Transferase 28 U/L (0-37); Bilirubin,Total < 0.39 MG/DL (0.2-1.0); Blood Urea Nitrogen 10 MG/DL (7-18); Calcium 8.4 MG/DL (8.5-10.1); Carbon Dioxide 22 MMOL/L (21-32); Estimated Glom Filtration Rate 138 ML/MIN; Glucose 158 MG/DL (74-106); Osmolality,Calculated 278.5 MOS/KG (273-304); Potassium 3.5 MMOL/L (3.5-5.1); Sodium 139 MMOL/L (136-145); Total Protein 6.4 G/DL (6.4-8.2)
[2020-12-07] MEDS ORDERED: GLUCAGON 1 MG VIAL IM PRN (14:12)
[2020-12-07] MEDS ORDERED: DEXTROSE 50% 25 GM/50 ML VIAL IV PRN (14:12)
[2020-12-07] MEDS: BETAMETH SODIUM PHOS/ACETATE 30 MG/5 ML VIAL IM SCH (15:13)
[2020-12-07] MEDS ORDERED: ACETAMINOPHEN 500 MG TABLET PO PRN (15:16)
[2020-12-07] MEDS: INSULIN REGULAR 100 UNIT/ML SUBCUT SCH ×2 (19:30→21:15)
[2020-12-07] MEDS ORDERED: INSULIN NPH 100 UNIT/ML SUBCUT SCH (21:00)
[2020-12-07] MEDS: LABETALOL 200 MG TABLET PO SCH (21:13)
[2020-12-07] MEDS ORDERED: NIFEdipine 10 MG CAPSULE PO ONE (22:43)
[2020-12-07] MEDS ORDERED: PROMETHAZINE 25 MG/1 ML VIAL IM ONE (22:44)
[2020-12-08] MEDS: BETAMETH SODIUM PHOS/ACETATE 30 MG/5 ML VIAL IM SCH (03:04)
[2020-12-08] MEDS: INSULIN REGULAR 100 UNIT/ML SUBCUT SCH ×3 (06:41→21:42)
[2020-12-08] MEDS: LABETALOL 200 MG TABLET PO SCH ×2 (08:06→21:37)
[2020-12-08] MEDS ORDERED: ONDANSETRON 4 MG/2 ML VIAL IV PRN (09:26)
[2020-12-08 10:05] LABS: Basophils % 0.2 % (0.0-0.8); Hemoglobin 12.5 GM/DL (12.0-16.0); Immature Granulocytes % 0.8 %; Lymphocytes # 1.7 10*3/uL (1.4-4.0); Lymphocytes % 14.1 % (21.3-54.2); Mean Corpuscular HGB Conc 32.1 GM/DL (32-36); Mean Corpuscular Volume 85.9 FL (87-102); Mean Platelet Volume 10.1 FL (9.6-12.0); Monocytes % 2.1 % (1.7-12.7); Neutrophils % 82.8 % (38.7-73.9); Platelet Count 349 T/CUMM (130-400); Red Blood Count 4.54 MC/CUMM (3.8-5.5); White Blood Count 12.2 T/CUMM (4-12)
[2020-12-08 10:23] LABS: Albumin 2.5 G/DL (3.4-5.0); Bilirubin,Direct 0.1 MG/DL (0.0-0.20); Bilirubin,Total 0.5 MG/DL (0.2-1.0); Calcium 8.9 MG/DL (8.5-10.1); Osmolality,Calculated 275.8 MOS/KG (273-304); Uric Acid 5.8 MG/DL (2.6-6.0)
[2020-12-08 10:25] LABS: PT Patient Result 10.3 SECS (9.8-11.9); Partial Thromboplastin Time 27.3 SECS (23.9-33.8)
[2020-12-08] MEDS: SERTRALINE 50 MG TABLET PO SCH (10:36)
[2020-12-08] MEDS ORDERED: INSULIN ASPART PROTAMINE/ASPART 70/30 100 UNIT/ML SUBCUT SCH (16:30)
[2020-12-08] MEDS ORDERED: PROMETHAZINE 25 MG/1 ML VIAL ONE (21:27)
[2020-12-08] MEDS ORDERED: PROMETHAZINE 25 MG/1 ML VIAL IM PRN (21:30)
[2020-12-09] MEDS ORDERED: OXYTOCIN 10 UNIT/ML VIAL ONE (04:05)
[2020-12-09] MEDS ORDERED: miSOPROStoL 200 MCG TABLET ONE (04:06)
[2020-12-09] MEDS ORDERED: TRANEXAMIC ACID 1,000 MG/10 ML VIAL ONE (04:06)
[2020-12-09] MEDS ORDERED: METHYLERGONOVINE 0.2 MG/1 ML AMP ONE (04:07)
[2020-12-09] MEDS ORDERED: CARBOPROST TROMETHAMINE 250 MCG/ML AMP IM ONE (04:07)
[2020-12-09] MEDS ORDERED: ceFAZolin 3,000 MG in SYRINGE 1 EACH IV ONE (04:41)
[2020-12-09] MEDS ORDERED: CITRIC ACID/SODIUM CITRATE 30 ML UDCUP PO ONE (04:41)
[2020-12-09] MEDS ORDERED: FAMOTIDINE 20 MG/2 ML VIAL IV ONE (04:41)
[2020-12-09 05:25] LABS: Basophils % 0.1 % (0.0-0.8); Hemoglobin 11.2 GM/DL (12.0-16.0); Immature Granulocytes % 0.9 %; Immature Granulocytes Absolute 0.13 #; Lymphocytes # 2.5 10*3/uL (1.4-4.0); Lymphocytes % 17.4 % (21.3-54.2); Mean Corpuscular HGB Conc 32.9 GM/DL (32-36); Mean Corpuscular Volume 85.2 FL (87-102); Mean Platelet Volume 9.8 FL (9.6-12.0); Monocytes % 6.3 % (1.7-12.7); Neutrophils % 75.3 % (38.7-73.9); Platelet Count 311 T/CUMM (130-400); Red Blood Count 3.99 MC/CUMM (3.8-5.5); White Blood Count 14.2 T/CUMM (4-12)
[2020-12-09] MEDS: LACTATED RINGERS 1,000 ML IV SCH ×3 (06:42→18:38)
[2020-12-09] MEDS ORDERED: INSULIN ASPART PROTAMINE/ASPART 70/30 100 UNIT/ML SUBCUT SCH (07:30)
[2020-12-09] MEDS ORDERED: OXYTOCIN/LR 30 UNIT/1,000 ML BAG IV ONE (08:00)
[2020-12-09] MEDS: INSULIN REGULAR 100 UNIT/ML SUBCUT SCH ×5 (08:03→22:42)
[2020-12-09] MEDS ORDERED: ONDANSETRON 4 MG/2 ML VIAL ONE (08:37)
[2020-12-09] MEDS ORDERED: BUPIVACAINE SPINAL 0.75% 2 ML AMP SPINAL ONE (08:37)
[2020-12-09] MEDS ORDERED: fentaNYL 100 MCG/2 ML VIAL ONE (08:37)
[2020-12-09] MEDS ORDERED: MORPHINE 10 MG/10 ML VIAL ONE (08:38)
[2020-12-09] MEDS ORDERED: FUROSEMIDE 20 MG/2 ML VIAL ONE (09:29)
[2020-12-09] MEDS ORDERED: PHENYLEPHRINE 1 MG/10 ML SYRINGE IV ONE (09:30)
[2020-12-09 09:44] LABS: Cord Arterial Blood HCO3 21.1 MMOL/L
[2020-12-09 09:47] LABS: Cord Venous Blood HCO3 22.3 MMOL/L; Cord Venous Blood PCO2 47.4 MMHG; Cord Venous Blood PO2 32.9
[2020-12-09 09:51] LABS: Bilirubin,Urine Negative (Negative); Blood, Urine Negative (Negative); Glucose,Urine (UA) 150 mg/dL (Negative); Ketones,Urine Negative (Negative); Mucus,Urine Occasional /LPF (Occasional); Nitrite,Urine Negative (Negative); Protein,Urine Negative; RBC,Urine <1 /HPF (0-4); Squamous Epithelial Cell,Urine Occasional /HPF (0-10); Urine Appearance CLEAR (Clear); Urine Color Yellow (Yellow); Urine Specific Gravity 1.017 (1.001-1.035); Urine Urobilinogen < 2.0 EU/DL (0.2-1.0); WBC,Urine 1 /HPF (0-6)
[2020-12-09] MEDS ORDERED: RHO(D) IMMUNE GLOBULIN 300 MCG SYRINGE IM ONE (10:14)
[2020-12-09] MEDS ORDERED: GLUCAGON 1 MG VIAL IM PRN (10:14)
[2020-12-09] MEDS ORDERED: OXYTOCIN/LR 20 UNIT/1,000 ML BAG IV ONE (10:14)
[2020-12-09] MEDS ORDERED: ACETAMINOPHEN 325 MG TABLET PO PRN (10:14)
[2020-12-09] MEDS ORDERED: SIMETHICONE CHEW 80 MG TABLET PO PRN (10:14)
[2020-12-09] MEDS ORDERED: ONDANSETRON 4 MG/2 ML VIAL IV PRN (10:14)
[2020-12-09] MEDS ORDERED: DEXTROSE 50% 25 GM/50 ML VIAL IV PRN (10:14)
[2020-12-09] MEDS ORDERED: ceFAZolin 1,000 MG in SYRINGE 1 EACH IV SCH (10:30)
[2020-12-09] MEDS: LABETALOL 200 MG TABLET PO SCH (10:45)
[2020-12-09] MEDS ORDERED: diphenhydrAMINE 50 MG/1 ML VIAL IV ONE (10:46)
[2020-12-09] MEDS: ACETAMINOPHEN 500 MG TABLET PO SCH ×3 (10:57→22:37)
[2020-12-09] MEDS: KETOROLAC 30 MG/1 ML VIAL IV SCH ×2 (11:00→18:39)
[2020-12-09] MEDS: SERTRALINE 50 MG TABLET PO SCH (11:39)
[2020-12-09] MEDS: FUROSEMIDE 40 MG/4 ML VIAL IV SCH ×2 (15:33→21:16)
[2020-12-09] MEDS: ceFAZolin 1,000 MG in SYRINGE 1 EACH IV SCH (16:25)
[2020-12-09 16:36] LABS: Basophils % 0.3 % (0.0-0.8); Eosinophils % 0.1 % (0.00-10.9); Hematocrit 35.2 VOL% (35.7-47.0); Hemoglobin 11.2 GM/DL (12.0-16.0); Immature Granulocytes % 0.8 %; Immature Granulocytes Absolute 0.11 #; Lymphocytes # 2.2 10*3/uL (1.4-4.0); Mean Corpuscular HGB Conc 31.8 GM/DL (32-36); Mean Corpuscular Volume 86.1 FL (87-102); Mean Platelet Volume 9.8 FL (9.6-12.0); Monocytes % 5.9 % (1.7-12.7); Neutrophils % 77.9 % (38.7-73.9); Platelet Count 311 T/CUMM (130-400); Red Blood Count 4.09 MC/CUMM (3.8-5.5); White Blood Count 14.3 T/CUMM (4-12)
[2020-12-09] MEDS: DOCUSATE SODIUM 100 MG CAPSULE PO SCH (21:15)
[2020-12-10] MEDS: ceFAZolin 1,000 MG in SYRINGE 1 EACH IV SCH (00:23)
[2020-12-10] MEDS ORDERED: diphenhydrAMINE CAP 25 MG CAPSULE PO PRN (00:45)
[2020-12-10] MEDS: LACTATED RINGERS 1,000 ML IV SCH (02:30)
[2020-12-10] MEDS: KETOROLAC 30 MG/1 ML VIAL IV SCH (03:28)
[2020-12-10] MEDS: FUROSEMIDE 40 MG/4 ML VIAL IV SCH (03:29)
[2020-12-10] MEDS: ACETAMINOPHEN 500 MG TABLET PO SCH (05:13)
[2020-12-10 06:58] LABS: Basophils % 0.3 % (0.0-0.8); Eosinophils # 0.1 10*3/uL (0.0-0.87); Eosinophils % 0.8 % (0.00-10.9); Hemoglobin 11.3 GM/DL (12.0-16.0); Immature Granulocytes % 0.4 %; Immature Granulocytes Absolute 0.05 #; Lymphocytes # 2.9 10*3/uL (1.4-4.0); Lymphocytes % 25.7 % (21.3-54.2); Mean Corpuscular HGB Conc 32.3 GM/DL (32-36); Mean Corpuscular Volume 84.5 FL (87-102); Mean Platelet Volume 9.5 FL (9.6-12.0); Monocytes % 5.3 % (1.7-12.7); Neutrophils % 67.5 % (38.7-73.9); Platelet Count 309 T/CUMM (130-400); Red Blood Count 4.14 MC/CUMM (3.8-5.5); Red Cell Distribution Width 12.8 % (9.3-17.3); White Blood Count 11.4 T/CUMM (4-12)
[2020-12-10] MEDS: INSULIN REGULAR 100 UNIT/ML SUBCUT SCH ×4 (06:58→21:29)
[2020-12-10] MEDS: DOCUSATE SODIUM 100 MG CAPSULE PO SCH ×2 (08:38→21:25)
[2020-12-10] MEDS: METOCLOPRAMIDE 10 MG/10 ML UDCUP PO SCH ×3 (08:38→23:33)
[2020-12-10] MEDS: MULTIVITAMIN (PRENATAL) TABLET PO SCH (08:38)
[2020-12-10] MEDS: MAGNESIUM HYDROXIDE SUSP 30 ML UDCUP PO PRN (11:17)
[2020-12-10] MEDS: IBUPROFEN 800 MG TABLET PO PRN (21:26)
[2020-12-11] MEDS: INSULIN REGULAR 100 UNIT/ML SUBCUT SCH ×4 (07:10→21:34)
[2020-12-11] MEDS: IBUPROFEN 800 MG TABLET PO PRN (07:36)
[2020-12-11] MEDS: DOCUSATE SODIUM 100 MG CAPSULE PO SCH ×2 (07:38→21:37)
[2020-12-11] MEDS: MAGNESIUM HYDROXIDE SUSP 30 ML UDCUP PO PRN (07:38)
[2020-12-11] MEDS: METOCLOPRAMIDE 10 MG/10 ML UDCUP PO SCH ×2 (07:38→15:32)
[2020-12-11] MEDS: MULTIVITAMIN (PRENATAL) TABLET PO SCH (08:32)
[2020-12-11] MEDS ORDERED: MAGNESIUM CITRATE 300 ML BOTTLE PO ONE (10:32)
[2020-12-11] MEDS: SERTRALINE 50 MG TABLET PO SCH (15:25)
[2020-12-11] MEDS ORDERED: BISACODYL 10 MG SUPP RECTAL PRN (16:04)
[2020-12-12] MEDS: METOCLOPRAMIDE 10 MG/10 ML UDCUP PO SCH ×2 (00:08→09:06)
[2020-12-12] MEDS: INSULIN REGULAR 100 UNIT/ML SUBCUT SCH ×2 (07:30→12:46)
[2020-12-12] MEDS: IBUPROFEN 800 MG TABLET PO PRN (07:32)
[2020-12-12] MEDS ORDERED: DIPH/TET/ACEL PERT BOOSTER VACCINE 0.5 ML VIAL IM ONE (08:00)
[2020-12-12] MEDS: SERTRALINE 50 MG TABLET PO SCH (08:50)
[2020-12-12] MEDS: DOCUSATE SODIUM 100 MG CAPSULE PO SCH (08:50)
[2020-12-12] MEDS: MULTIVITAMIN (PRENATAL) TABLET PO SCH (08:50)
[2020-12-12 09:02] VITALS: BP 150/81
== END 2020-12-12 12:55 | disposition home or self-care (01) | DRG 785 ==
LOC: N.LD 13:00 → N.OB 12-09 13:47
PROVIDERS: ADMIT Obstetrics & Gynecology; ATTEND Obstetrics & Gynecology